=== PATIENT | male | born 1990 | race Caucasian/White ===

== ENCOUNTER 2018-05-18 17:35 | Emergency (ER) | payer MEDICAID ==
[~2018-05-18] VITALS: Ht 175.3 cm; Wt 144.8 kg
[2018-05-18 18:21] VITALS: BP 133/90
== END 2018-05-18 19:49 | disposition home or self-care (01) ==
LOC: ER 17:35
DX: F31.9 Bipolar disorder, unspecified (principal); F20.9 Schizophrenia, unspecified; Z76.0 Encounter for issue of repeat prescription

== ENCOUNTER 2018-11-07 15:30 | Emergency (ER) | payer MEDICAID, OTHER ==
[~2018-11-07] VITALS: Ht 172.7 cm; Wt 135.2 kg
[2018-11-07 16:18] VITALS: BP 146/100
== END 2018-11-07 18:41 | disposition home or self-care (01) ==
LOC: ER 15:30
DX: F20.9 Schizophrenia, unspecified (principal); Z76.0 Encounter for issue of repeat prescription

== ENCOUNTER 2020-06-23 13:20 | Emergency (ER) | payer OTHER ==
[~2020-06-23] VITALS: Ht 175.3 cm; Wt 131.5 kg
[2020-06-23 13:52] VITALS: BP 144/93
== END 2020-06-23 14:47 | disposition home or self-care (01) ==
LOC: ER 13:20
DX: F20.9 Schizophrenia, unspecified (principal); Z76.0 Encounter for issue of repeat prescription